=== PATIENT | male | born 2005 | race African-American/Black ===

== ENCOUNTER 2023-01-11 06:35 | Emergency (ER) | payer MEDICAID ==
[~2023-01-11] VITALS: Ht 190.5 cm; Wt 71.2 kg
[~2023-01-11 06:35] MED LIST: LEVO-65 MT
[2023-01-11 07:03] VITALS: BP 159/94
== END 2023-01-11 09:27 | disposition home or self-care (01) ==
LOC: ER 06:35
DX: H92.01 Otalgia, right ear (principal)
CPT/HCPCS: 69200; 99284